=== PATIENT | male | born 1975 | race Hispanic/Latino ===

== ENCOUNTER 2020-12-29 22:10 | Emergency (ER) | payer BC ==
[~2020-12-29] VITALS: Ht 172.7 cm; Wt 122.0 kg
[2020-12-29] MEDS ORDERED: ONDANSETRON ODT4 MG PO (23:14)
[2020-12-29] MEDS ORDERED: IBUPROFEN600 MG PO (23:14)
[2020-12-29] MEDS ORDERED: KETOROLAC TROMETHAMINE 60 MG/2 ML VIAL IM ONE (23:15)
[2020-12-29] MEDS ORDERED: ONDANSETRON HCL 4 MG ORAL DISINTEGRATING TAB PO ONE (23:15)
[2020-12-30 02:30] VITALS: BP 132/65
== END 2020-12-29 23:50 | disposition home or self-care (01) ==
LOC: ER 22:16
DX: R10.12 Left upper quadrant pain (principal); K52.9 Noninfective gastroenteritis and colitis, unspecified; R11.0 Nausea
CPT/HCPCS: 99283; J1885; Q0162